=== PATIENT | female | born 1960 | race Caucasian/White ===

== ENCOUNTER 2018-09-03 05:35 | Day surgery (SDC) | payer OTHER ==
[~2018-09-03] VITALS: Ht 177.8 cm; Wt 54.4 kg
[2018-09-03] VITALS (14 sets, daily range): BP systolic 119–147; BP diastolic 67–89
[~2018-09-03 05:35] MED LIST: AMLODIPINE BESYL5 MG ORAL; HYDROXYZINE PAM50 MG PO; LOSARTAN POTASS50 MG ORAL; PAXIL10 MG ORAL; PERCOCET 10-321 EAC1 PO
--- NOTE | 2018-09-03 06:20 | NUR ---
PT C/O RIGHT HEEL PAIN LEVEL 9-THROBBING CONSTANT AND DULL ACHE. WALKING AND ACTIVITY MAKES IT WORSE. TO EASE PAIN, PT RESTS AND APPLY ICE AND PILLOW SUPPORT. SPLINT NOTED ON RIGHT LOWER EXTREMITY. GOAL-0-10/10.
[2018-09-03] MEDS ORDERED: Lidocaine 1% MPF 10mg/ml 5ml ONE (06:37)
[2018-09-03] MEDS ORDERED: Midazolam 2mg/2ml Inj ONE (06:37)
[2018-09-03] MEDS ORDERED: fentaNYL 100 mcg/2 mL IV ONE (06:37)
[2018-09-03] MEDS ORDERED: Propofol 200mg/20ml IV ONE (06:37)
[2018-09-03] MEDS ORDERED: Ropivacaine 5mg/ml Vial 30ml INJ ONE (06:46)
[2018-09-03] MEDS ORDERED: Bacitracin 50000 Units Vial ONE (06:46)
--- NOTE | 2018-09-03 06:52 | Anethesia Preoperative Eval ---
Anesthesia Pre-op PMH/ROS General Date of Evaluation: Sep 03, 2018 Time of Evaluation: 06:52 Anesthesiologist: Asmita Jones CRNA ASA Score: ASA 2 Mallampati Score Class I : Soft palate, uvula, fauces, pillars visible Class II: Soft palate, uvula, fauces visible Class III: Soft palate, base of uvula visible Class IV: Only hard plate visible Mallampati Classification: Class II Surgeon: Karlee Diagnosis: RIGHT elbow and heel fracture Surgical Procedure: RIGHT elbow ORIF, RIGHT heel ORIF Anesthesia History: none Social History: smoking, current smoker, alcohol use, drug use - daily wesley Family History: no anesthesia problems Allergies: Coded Allergies: CLINDAMYCIN (Verified Allergy, Severe, 09/03/18) skin rash,itching Medications: see eMAR Patient NPO?: Yes NPO Date: Sep 03, 2018 NPO Time: 00:00 Past Medical History Cardiovascular: Reports: HTN; Denies: CAD, PR, valve dz, arrhythmia, other Pulmonary: Reports: other - 40 pack years smoking; Denies: asthma, COPD, DEVANG Gastrointestinal/Genitourinary: Denies: GERD, CRI, ESRD, other Neurologic/Psychiatric: Reports: depression/anxiety, other - PTSD; Denies: dementia, CVA, TIA Endocrine: Denies: DM, hypothyroidism, steroids, other HEENT: Reports: cataract (L), cataract (R), other - (B) hearing loss, tinnitus ; Denies: glaucoma, CIRCLE (L), CIRCLE (R) Hematology/Immune: Denies: anemia, DVT, bleeding disorder, other Musculoskeletal/Integumentary: Reports: other - RIGHT elbow & heel fracture from fall 08/27/18 PMH Narrative: as above PSxH Narrative: LEFT RTC repair, c/s Anesthesia Pre-op Phys. Exam Physician Exam Last Vital Signs Date Time Temp Pulse Resp B/P (MAP) Pulse Ox O2 Delivery O2 Flow Rate FiO2 09/03/18 06:15 97.8 74 20 146/84 99 Room Air Constitutional: NAD Neurologic: CN 2-12 intact Cardiovascular: RRR Respiratory: CTA Gastrointestinal: S/NT/ND Airway Exam Mallampati Score: Class II MO: full Neck: no limitations TMD: 2-3 FB ROM: full Teeth: missing, intact Dentures: no upper, no lower Anesthesia Pre-op A/P Labs reviewed, see chart Studies Pre-op Studies: EKG - NSR, LVH Risk Assessment & Plan Assessment: OK to proceed Plan: GA Status Change Before Surgery: No Pre-Antibiotics Drug: Asmita Sandoval CRNA Sep 03, 2018 06:52
[2018-09-03] MEDS ORDERED: LR 1000ml ONE (07:00)
[2018-09-03] MEDS ORDERED: Sterile Water Irrig 1000ml IRRIG ONE (07:00)
--- NOTE | 2018-09-03 07:06 | Pre-Procedure Note/Attestation ---
Pre-Procedure Note/Attestation Complete Prior to Procedure Planned Procedure: right Procedure Narrative: Right heel fracture ORIF Right olecranon fracture ORIF Indications for Procedure Pre-Operative Diagnosis: right heel and olecranon fractures Attestation I attest that I discussed the nature of the procedure; its benefits; risks and complications; and alternatives (and the risks and benefits of such alternatives ), prior to the procedure, with the patient (or the patient's legal admissions representative). I attest that, if there was a reasonable possibility of needing a blood transfusion, the patient (or the patient's legal admissions representative) was given the [place] Department of Health Services standardized written summary, pursuant to the [place] Blood Safety Act ([place] Health and Safety Code # 1645, as amended). I attest that I re-evaluated the patient just prior to the surgery and that there has been no change in the patient's H&P, except as documented below: Moreno Desir MD Sep 03, 2018 07:06
[2018-09-03] MEDS ORDERED: NS Irrig 1000ml IRRIG ONE (07:30)
[2018-09-03] MEDS ORDERED: DiphenhydrAMINE 50mg/ml Inj IVP PRN (09:15)
[2018-09-03] MEDS ORDERED: Acetaminophen (Non formulary) 100 ML IV ONE (09:15)
[2018-09-03] MEDS ORDERED: Glycopyrrolate 0.2mg/ml 1ml Vial ONE (09:26)
[2018-09-03] MEDS ORDERED: Dexamethasone 4mg/ml vial ONE (09:26)
[2018-09-03] MEDS ORDERED: Ketorolac 30mg Inj ONE (09:26)
[2018-09-03] MEDS ORDERED: Neostigmine 1mg/ml 10ml Inj ONE (09:26)
[2018-09-03] MEDS ORDERED: Esmolol 100mg/10ml Inj ONE (09:34)
--- NOTE | 2018-09-03 09:42 | Brief Operative Note ---
Immediate Post Operative Note Operative Note Pre-op Diagnosis: right heel and olecranon fractures Procedure: ORIF right heel and right elbow Post-op Diagnosis: Same Post-op Diagnosis: same as pre-op Findings: consistent w/pre-op dx studies Surgeon: Karlee Vocational Placement Specialist: Ida Anesthesia: general Specimen: none Complications: none Condition: stable Fluids: per anes Estimated Blood Loss: volume - 200cc Implant(s) used?: Yes - olecranon bonny plate, heel cannulated screw and juggernaut suture anchor Moreno Desir MD Sep 03, 2018 09:42
--- NOTE | 2018-09-03 09:59 | Immediate Post-Op Evaluation ---
Immediate Post-Op Evalulation Immediate Post-Op Evalulation Procedure: RIGHT elbow ORIF, RIGHT heel ORIF Date of Evaluation: Sep 03, 2018 Time of Evaluation: 09:48 IV Fluids: LR 1400 ml Estimated Blood Loss: 100 ml Blood Pressure Systolic: 135 Blood Pressure Diastolic: 89 Pulse Rate: 93 Respiratory Rate: 20 O2 Sat by Pulse Oximetry: 100 Temperature (Fahrenheit): 97.4 Pain Score (1-10): 3 Nausea: No Vomiting: No Complications none Patient Status: awake, patent, extubated Hydration Status: adequate Drug: cefazolin Given Within 1 Hr of Incision: Yes Time Given: 07:25 Asmita Jones CRNA Sep 03, 2018 09:58
[2018-09-03] MEDS: Hydromorphone 0.5mg/0.5ml inj IVP PRN ×3 (10:01→10:37)
[2018-09-03] MEDS ORDERED: oxyCODONE 5mg IR tab ORAL ONE (13:30)
--- NOTE | 2018-09-03 13:43 | 48 Hour Post Anesthesia Eval ---
Post Anesthesia Evaluation Procedure: RIGHT elbow ORIF, RIGHT heel ORIF Date of Evaluation: Sep 03, 2018 Time of Evaluation: 13:12 Blood Pressure Systolic: 119 0: 72 Pulse Rate: 76 Respiratory Rate: 18 Temperature (Fahrenheit): 97.4 O2 Sat by Pulse Oximetry: 100 Airway: patent Nausea: No Vomiting: No Pain Intensity: 4 Hydration Status: adequate Cardiopulmonary Status: stable Mental Status/LOC: patient returned to baseline Follow-up Care/Observations: per ortho Post-Anesthesia Complications: none Follow-up care needed: ready to discharge Asmita Jones CRNA Sep 03, 2018 13:43
--- NOTE | 2018-09-03 14:00 | Diagnostic Imaging Report ---
INDICATION: Pain, intraoperative TECHNIQUE: Intraoperative imaging Fluoroscopy time: 19.6 seconds Total dose: 0.31850 mGym2 Total number of images: 2 COMPARISON: None FINDINGS: Intraoperative images demonstrate surgical fixation of comminuted calcaneal tuberosity fracture with a surgical screw IMPRESSION: Intraoperative imaging, as described
--- NOTE | 2018-09-03 14:01 | Diagnostic Imaging Report ---
INDICATION: Pain, intraoperative TECHNIQUE: Intraoperative imaging Fluoroscopy time: 19.6 seconds Total dose: 0.22321 mGym2 Total number of images: 2 COMPARISON: None FINDINGS: Intraoperative images demonstrate surgical repair of the ulnar olecranon with plate and screws IMPRESSION: Intraoperative imaging, as described
--- NOTE | 2018-09-06 17:45 | Operative Note - Dictated ---
DATE OF OPERATION: 09/03/2018 SURGEON: Moreno Desir M.D. CO-SURGEON: Morgan Prieto M.D. NAME OF THE OPERATION: 1. ORIF, right olecranon comminuted fracture with Aure olecranon plate. 2. ORIF and advancement of Achilles posterior attachment fracture with cannulated screw and bone graft. 3. Application of posterior splints. INDICATIONS FOR OPERATION: This is an approximately 58-year-old female, who is status post a trip and fall injury in approximately 1 week. She now presents for open reduction and internal fixation of her fractures. COMPLICATIONS: None. ESTIMATED BLOOD LOSS: 200 mL on the olecranon and 50 mL on the calcaneus. DESCRIPTION OF PROCEDURE IN DETAIL: The patient was brought into the operating room and identified by name. A general anesthetic was induced. She was placed into the prone position. All pressures points were padded. A time-out was performed. The surgical sites have been marked. Attention was first directed to the right olecranon fracture. A posterior midline incision was made from the tip of the olecranon down to the shaft. Hemostasis was obtained as bleeding was encountered. The fracture site was entered. The fracture site was thoroughly irrigated. No tourniquet was necessary. The fracture was highly comminuted. There was a fragment of intraarticular bone that was completely detached. This comprised about 3 mm x 4 mm of articular surface and was removed. There was some lateral comminution as well. Enough soft tissue was stripped to align the bony fragments, which had an excellent apposition and fit on the medial cortex. Provisional fixation was used with a K-wire. The [place] plate was utilized. This provided excellent fixation for the fracture. Locking screws were placed. Three screws were placed into the shaft in a bicortical manner. The hook of the plate held the fixation well. Two proximal screws were utilized. The pin was removed. The wound was thoroughly irrigated. The defect along the lateral cortex was filled with the bone paste. A shell of medial cortex was also sewn into place. The elbow was taken through a full range of motion. The fracture construct was quite stable. The wound was irrigated. Skin was closed using subcutaneous 2-0 Vicryl. The skin was closed using 4-0 nylon running. A sterile dressing was applied. Attention was directed to the heel fracture. An attempt was made to reduce the fracture percutaneously, but this could not be performed. A longitudinal 4 cm incision was made along the lateral aspect of the posterior calcaneus. Hemostasis was obtained as bleeding was encountered. The fracture itself was comminuted. There was a small fragment still attached to the deep portion of the Achilles. There was a superficial portion of the Achilles that had no bony attachment. There was a wafer of bone between the two fragments that was the entire width of the calcaneus and approximately 4 mm thick at its thickest point. This had no soft tissue attachment. It could not be reduced into its bed. It was therefore elected to remove the fragment and advance the tendon. A screw with a washer was placed into the bony fragment still attached to the calcaneus. This provided excellent fixation. The foot was plantar flexed and the cannulated screw placed into the heel avoiding the comminution about the plantar posterior calcaneus as well. This provided excellent fixation of the calcaneus. The foot was taken through a full range of motion with 20 degrees of dorsiflexion of the calcaneus without separation of the fragment. Next, a JuggerKnot suture anchor was selected. A drill was placed through the plantar surface of the calcaneus. The JuggerKnot was advanced and deployed. The sutures from the JuggerKnot were used to sew down the superficial portion of the Achilles tendon. This covered the screw. There was no tension on the skin. The subcutaneous tissue was closed using 2-0 Vicryl. The skin was closed using 4-0 nylon horizontal mattress. Sterile dressing was applied to the foot. Splints were applied to the posterior surface of the arm and the posterior Achilles with the Achilles in 20 degrees of plantar flexion and the elbow in 90 degrees of flexion. The patient was returned to the supine position and awakened in the operating room in satisfactory condition. Moreno Desir M.D. DR: CHRISTIANO JOB#: [id number] CC: Moreno Desir M.D.; [address] [place] [address]; [place] [address]; Fax#: [phone] [facility]
== END 2018-09-03 14:10 | disposition home or self-care (01) ==
LOC: SUR 05:35
DX: S52.031A Displaced fracture of olecranon process with intraarticular extension of right ulna, initial encounter for closed fracture (principal); S92.001A Unspecified fracture of right calcaneus, initial encounter for closed fracture; I10 Essential (primary) hypertension; F17.210 Nicotine dependence, cigarettes, uncomplicated; R63.6 Underweight; F12.90 Cannabis use, unspecified, uncomplicated; F32.9 Major depressive disorder, single episode, unspecified; F41.9 Anxiety disorder, unspecified; F43.10 Post-traumatic stress disorder, unspecified; Z88.1 Allergy status to other antibiotic agents
CPT/HCPCS: 24685; 28415; 73080; 73650; 76001; J0690; J1100; J1170; J1200; J1885; J2250; J2405; J2704; J2710; J3010

== ENCOUNTER 2018-09-30 05:38 | Day surgery (SDC) | payer OTHER ==
[2018-09-30] VITALS (10 sets, daily range): BP systolic 107–157; BP diastolic 65–87
[~2018-09-30] VITALS: Ht 177.8 cm; Wt 54.4 kg
[~2018-09-30 05:38] MED LIST changes: +CEPHALEXIN500 M1 ORAL
[2018-09-30] MEDS ORDERED: Bacitracin 50000 Units Vial ONE (06:31)
[2018-09-30] MEDS ORDERED: NeoSporin Gu Irrig 1ml Amp IRRIG ONE (06:31)
[2018-09-30] MEDS ORDERED: Bupivacaine 0.5% Inj 30 ml vial INJ ONE (06:31)
[2018-09-30] MEDS ORDERED: fentaNYL 100 mcg/2 mL IV ONE ×2 (06:47→07:54)
[2018-09-30] MEDS ORDERED: Acetaminophen (Non formulary) 100 ML IV ONE (07:00)
[2018-09-30] MEDS ORDERED: Metoclopramide 10mg/2ml Inj IVP PRN (07:00)
[2018-09-30] MEDS ORDERED: LR 1000ml ONE (07:00)
[2018-09-30] MEDS ORDERED: Hydromorphone 0.5mg/0.5ml inj IVP PRN (07:00)
--- NOTE | 2018-09-30 07:02 | Anethesia Preoperative Eval ---
Anesthesia Pre-op PMH/ROS General Date of Evaluation: Sep 30, 2018 Time of Evaluation: 07:00 Anesthesiologist: job ASA Score: ASA 2 Mallampati Score Class I : Soft palate, uvula, fauces, pillars visible Class II: Soft palate, uvula, fauces visible Class III: Soft palate, base of uvula visible Class IV: Only hard plate visible Mallampati Classification: Class II Surgeon: marlen Diagnosis: wound dehis Surgical Procedure: wound washout and closure Anesthesia History: none Social History: smoking, current smoker Family History: no anesthesia problems Allergies: Coded Allergies: CELECOXIB (Verified Allergy, Severe, 09/30/18) blood in the stool CLINDAMYCIN (Verified Allergy, Severe, 09/30/18) skin rash,itching Medications: see eMAR Patient NPO?: Yes NPO Date: Sep 30, 2018 NPO Time: 00:01 Past Medical History Cardiovascular: Reports: HTN; Denies: CAD, [place], valve dz, arrhythmia, other Pulmonary: Denies: asthma, COPD, DEVANG, other Gastrointestinal/Genitourinary: Denies: GERD, CRI, ESRD, other Neurologic/Psychiatric: Reports: depression/anxiety; Denies: dementia, CVA, TIA, other Endocrine: Denies: DM, hypothyroidism, steroids, other HEENT: Reports: cataract (L), cataract (R) Hematology/Immune: Denies: anemia, DVT, bleeding disorder, other Musculoskeletal/Integumentary: Reports: OA, other - pre existing right hand and finger paresthesia PSxH Narrative: ORIF elbow Anesthesia Pre-op Phys. Exam Physician Exam Last Vital Signs Date Time Temp Pulse Resp B/P (MAP) Pulse Ox O2 Delivery O2 Flow Rate FiO2 09/30/18 06:08 97.0 74 18 138/65 98 Room Air Constitutional: NAD Neurologic: CN 2-12 intact Cardiovascular: RRR Respiratory: CTA Gastrointestinal: S/NT/ND Airway Exam Mallampati Classification 2 Mallampati Score: Class II MO: full ROM: full Dentures: no upper, no lower Anesthesia Pre-op A/P Studies Pre-op Studies: EKG - sr Risk Assessment & Plan Assessment: denies health changes since last surgery Plan: general Status Change Before Surgery: No Pre-Antibiotics Drug: ancef Given Within 1 Hr of Incision: Yes Time Given: 07:15 Divya Bush ASSEMBLY DEPARTMENT SUPERVISOR Sep 30, 2018 07:02
--- NOTE | 2018-09-30 07:15 | Pre-Procedure Note/Attestation ---
Pre-Procedure Note/Attestation Complete Prior to Procedure Planned Procedure: right Procedure Narrative: Irrigation and Debridement wound dehiscince, repeat closure. Indications for Procedure Pre-Operative Diagnosis: wound dehiscence right olecranon Attestation I attest that I discussed the nature of the procedure; its benefits; risks and complications; and alternatives (and the risks and benefits of such alternatives ), prior to the procedure, with the patient (or the patient's legal district sales representative). I attest that, if there was a reasonable possibility of needing a blood transfusion, the patient (or the patient's legal district sales representative) was given the [place] Department of Health Services standardized written summary, pursuant to the [place] Blood Safety Act ([place] Health and Safety Code # 1645, as amended). I attest that I re-evaluated the patient just prior to the surgery and that there has been no change in the patient's H&P, except as documented below: Moreno Desir MD Sep 30, 2018 07:15
[2018-09-30] MEDS ORDERED: Propofol 200mg/20ml IV ONE (07:34)
[2018-09-30] MEDS ORDERED: Lidocaine 1% MPF 10mg/ml 5ml ONE (07:34)
[2018-09-30] MEDS ORDERED: Metoclopramide 10mg/2ml Inj ONE (07:34)
[2018-09-30] MEDS ORDERED: Ketorolac 30mg Inj ONE (07:52)
--- NOTE | 2018-09-30 08:23 | Brief Operative Note ---
Immediate Post Operative Note Operative Note Pre-op Diagnosis: wound dehiscence right olecranon Procedure: irrigation and debridement closure Post-op Diagnosis: wound dehiscence Post-op Diagnosis: same as pre-op Surgeon: marlen Anesthesia: general Specimen: none Complications: none Condition: stable Fluids: 300cc ns Estimated Blood Loss: minimal Drains: none Implant(s) used?: No Moreno Desir MD Sep 30, 2018 08:23
--- NOTE | 2018-09-30 08:27 | Immediate Post-Op Evaluation ---
Immediate Post-Op Evalulation Immediate Post-Op Evalulation Procedure: right elbow washout Date of Evaluation: Sep 30, 2018 Time of Evaluation: 08:26 IV Fluids: 700 Blood Pressure Systolic: 137 Blood Pressure Diastolic: 79 Pulse Rate: 76 Respiratory Rate: 14 O2 Sat by Pulse Oximetry: 98 Temperature (Fahrenheit): 97.3 Pain Score (1-10): 0 Nausea: No Vomiting: No Complications none Patient Status: awake, reacts, patent Hydration Status: adequate Drug: ancef Given Within 1 Hr of Incision: Yes Time Given: 07:15 Divya Bush CRNA Sep 30, 2018 08:27
[2018-09-30] MEDS: fentaNYL 100 mcg/2 mL IV PRN ×2 (08:57→09:09)
--- NOTE | 2018-09-30 17:00 | Operative Note - Dictated ---
DATE OF OPERATION: 09/30/2018 PREOPERATIVE DIAGNOSIS: Right elbow partial wound dehiscence. POSTOPERATIVE DIAGNOSIS: Right elbow partial wound dehiscence. SURGEON: Moreno Desir M.D. ORTHODONTIST: None. NAME OF THE OPERATION: Right olecranon wound irrigation and debridement, culture and closure. INDICATIONS FOR OPERATION: This is a 58-year-old female who was no more than three weeks status post ORIF of a right olecranon fracture. The surgery went smoothly. Her postoperative course was smooth. Sutures were removed at two weeks postop and the incision looked good. She returned to the office one week later with a 4 cm wound dehiscence directly over the olecranon plate. There has been no erythema about the wound edges. She has maintained a passive and active range of motion of approximately 90 degrees to lacking 30 degrees of full extension without elbow pain. She also has a partial ulnar neuropraxia. DESCRIPTION OF PROCEDURE IN DETAIL: The patient was brought into the operating room and identified as the patient. The right arm was prepped and draped in the usual sterile fashion. She was placed into the lateral decubitus position prior to prepping. A time-out was performed. No tourniquet was utilized. A scalpel was used to remove 1-2 mm of the old wound edge around the area of dehiscence to encourage fresh wound healing. There was deep granulation tissue covering the plate. This was excised using a curette and rongeur until the plate and surrounding bone were clearly visualized. The granulation tissue was sent for culture. It was understood that this probably represent colonization rather than a true infection based upon her clinical presentation. She has remained afebrile. Once the wound was thoroughly debrided, double antibiotic irrigation solution was used to thoroughly irrigate the wound with 3 L using an old syringe. A surgical scrub brush was also utilized to encourage superficial decolonization over the plate and surrounding tissues. The wound was extended minimally. A [place] rongeur was used to undermine 3-4 mm to help the attention of the repair. Meticulous hemostasis was obtained. A 4x4 soaked in Betadine was placed over the wound and allowed to sit for 5 minutes to further decolonize the area. No deep sutures were placed. Using a 2-0 nylon Franckgower [id number] suture technique, the wound was closed without undue tension across the wound. A couple of tightening up sutures support were used to further approximate the wound. There was not undue tension on the wound. A minimum amount of tension occurred with the elbow at approximately 45 degrees of flexion and was elected to immobilize her in this position until wound healing occurs. A sterile dressing was applied with Xeroform and 4x4s. A posterior long-arm splint was applied to the limb with the elbow at 45 degrees of flexion and rotation. The patient was returned to the supine position and awakened in the operating room in satisfactory condition. Moreno Desir M.D. DR: CARTER JOB#: [id number] CC:
== END 2018-09-30 10:10 | disposition home or self-care (01) ==
LOC: SUR 05:38
DX: T81.31XA Disruption of external operation (surgical) wound, not elsewhere classified, initial encounter (principal); Y83.8 Other surgical procedures as the cause of abnormal reaction of the patient, or of later complication, without mention of misadventure at the time of the procedure; Y92.89 Other specified places as the place of occurrence of the external cause; I10 Essential (primary) hypertension; F43.10 Post-traumatic stress disorder, unspecified; F32.9 Major depressive disorder, single episode, unspecified; F41.9 Anxiety disorder, unspecified; F17.210 Nicotine dependence, cigarettes, uncomplicated; M19.90 Unspecified osteoarthritis, unspecified site; E46 Unspecified protein-calorie malnutrition; Z88.1 Allergy status to other antibiotic agents; Z88.8 Allergy status to other drugs, medicaments and biological substances
CPT/HCPCS: 12020; 87070; 87075; 87205; J0690; J1885; J2405; J2704; J2765; J3010; 94003; 94150